=== PATIENT | female | born 1945 | race Caucasian/White ===

== ENCOUNTER 2020-04-12 07:11 | Day surgery (SDC) | payer OTHER ==
[~2020-04-12 07:11] MED LIST: FOLIC PO; FORTAMET1000 MG PO; GABAPENTIN PO; GLIPIZIDE XL10 MG PO; METHOTREXATE2.5 MG PO; PLAQUENIL PO
== END 2020-04-12 20:00 | disposition home or self-care (01) ==
LOC: CIR.AMB 07:11
PROVIDERS: ATTEND Surgery
DX: C50.412 Malignant neoplasm of upper-outer quadrant of left female breast (principal); C77.3 Secondary and unspecified malignant neoplasm of axilla and upper limb lymph nodes

== ENCOUNTER 2021-07-11 06:38 | Day surgery (SDC) | payer OTHER ==
[~2021-07-11 06:38] MED LIST changes: +ALTACE10 MG PO
== END 2021-07-11 21:41 | disposition home or self-care (01) ==
LOC: CIR.AMB 06:38
PROVIDERS: ATTEND Surgery
DX: C50.412 Malignant neoplasm of upper-outer quadrant of left female breast (principal); Z20.822 Contact with and (suspected) exposure to COVID-19

== ENCOUNTER 2022-09-24 10:00 | Inpatient (IN) | payer OTHER ==
[~2022-09-24] VITALS: Ht 160 cm; Wt 65.8 kg
[2022-09-29] MEDS ORDERED: ATORVASTATIN CA20 MG (12:59)
[2022-09-29] MEDS ORDERED: GABAPENTIN100 M2 (12:59)
[2022-09-29] MEDS ORDERED: HYDROCHLOROTH12.5 MG (12:59)
[2022-09-29] MEDS ORDERED: AMLODIPINE BESYL5 MG (12:59)
[2022-09-29] MEDS ORDERED: HYDROXYCHLOROQ200 MG (12:59)
[2022-09-29] MEDS ORDERED: LETROZOLE2.5 MG (12:59)
== END 2022-10-06 11:46 | disposition home or self-care (01) | DRG 331 ==
LOC: SURH 09-29 10:00 → O/R 09-29 10:54 → MEDI 09-29 10:54
PROVIDERS: ADMIT Colon & Rectal Surgery; ATTEND Colon & Rectal Surgery
PROC: 02HV33Z Insertion of Infusion Device into Superior Vena Cava, Percutaneous Approach (ICD-10-PCS; 2022-09-29)
PROC: 0DTN4ZZ Resection of Sigmoid Colon, Percutaneous Endoscopic Approach (ICD-10-PCS; principal; 2022-09-30)
PROC: 0DBP4ZZ Excision of Rectum, Percutaneous Endoscopic Approach (ICD-10-PCS; 2022-09-30)
PROC: 0WQF4ZZ Repair Abdominal Wall, Percutaneous Endoscopic Approach (ICD-10-PCS; 2022-09-30)
PROC: 0DBE4ZZ Excision of Large Intestine, Percutaneous Endoscopic Approach (ICD-10-PCS; 2022-09-30)
PROC: 0DJD8ZZ Inspection of Lower Intestinal Tract, Via Natural or Artificial Opening Endoscopic (ICD-10-PCS; 2022-09-30)
PROC: 30233N1 Transfusion of Nonautologous Red Blood Cells into Peripheral Vein, Percutaneous Approach (ICD-10-PCS; 2022-10-01)
DX: K57.20 Diverticulitis of large intestine with perforation and abscess without bleeding (principal); Z43.3 Encounter for attention to colostomy; K43.2 Incisional hernia without obstruction or gangrene; Z20.822 Contact with and (suspected) exposure to COVID-19; N73.6 Female pelvic peritoneal adhesions (postinfective); N99.4 Postprocedural pelvic peritoneal adhesions; D64.9 Anemia, unspecified